=== PATIENT | female | born 1990 | race Caucasian/White ===

== ENCOUNTER 2016-07-29 23:17 | Emergency (ER) | payer BC ==
[~2016-07-29] VITALS: Ht 152.4 cm; Wt 68.0 kg
[2016-07-29 23:24] VITALS: BP_SYST 128
[2016-07-30] MEDS ORDERED: DIPHENHYDRAMINE HCL 25 MG CAPSULE PO ONE (00:30)
[2016-07-30 00:48] VITALS: BP_SYST 132
== END 2016-07-30 00:48 | disposition home or self-care (01) ==
LOC: SED 23:17
DX: T78.49XA Other allergy, initial encounter (principal); X58.XXXA Exposure to other specified factors, initial encounter
CPT/HCPCS: 99282; Q0163